=== PATIENT | female | born 1995 | race Hispanic/Latino ===

== ENCOUNTER 2018-07-02 11:13 | Inpatient (IN) | payer OTHER ==
[2018-07-02 12:05] VITALS: BMI 30.2
[2018-07-02] MEDS ORDERED: OXYTOCIN/0.9 % NS 20 UNIT/1,000 ML BAG IV ONE (12:08)
[2018-07-02] MEDS ORDERED: Oxytocin 30 UNIT 30 UNITS/500 ML BAG IV ONE ×2 (12:08→14:26)
[2018-07-02 12:46] LABS: HEMOGLOBIN 12.4 g/dL (12.0-16.0); MEAN CELL VOLUME 87.9 fl (81.0-99.0); MEAN CORPUSCULAR HEMOGLOBIN 28.5 pg (27.0-31.0); MEAN CORPUSCULAR HGB CONC 32.5 g/dL (33.0-37.0); RBC 4.34 Mil/uL (3.80-5.20); RED CELL DISTRIBUTION WIDTH 14.5 % (11.5-14.5); WHITE BLOOD COUNT 12.2 K/uL (4.8-10.8)
[2018-07-02] MEDS: Lactated Ringer's 1,000 ML IV SCH ×2 (13:21→14:30)
[2018-07-02] MEDS: Lactated Ringer's 1,000 ML IV ONE ×2 (13:30→18:00)
[2018-07-02] MEDS ORDERED: Penicillin G 5 Million Unit Vial IVPB ONE (14:43)
[2018-07-02] MEDS ORDERED: Fentanyl/Bupivacaine HCl 250 ML EPI ONE (18:30)
[2018-07-02] MEDS ORDERED: Lidocaine 1% Inj (20ml) ONE (21:06)
[2018-07-02 22:02] LABS: BARBITURATES, UR NEGATIVE (NEGATIVE); BENZODIAZEPINES, UR NEGATIVE (NEGATIVE); OPIATES, UR NEGATIVE (NEGATIVE); PHENCYCLIDINE, UR NEGATIVE (NEGATIVE)
--- NOTE | 2018-07-03 01:01 | OBADHP ---
Datetime: 07/03/2018 00:54 Admit Comment, IP Provider: @ 39. 6 wks gGA c/o vagial bleeidn and ctx pain every 5-10 min sinc e last night increaisng intenisty and frequency since this morning. pt cuong any lof, +FM. 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, no lesions PMH: denies PSH: denies FHX: non contribory MEDS: pnv, valtrex a/p @ 39.6 wks GA in labor admit to L+D npo, vif admsison labs epidrula prn cont otoc adn efm gbs postive Pelvic Type - PN: Adequate Extremities - PN: Normal Abdomen - PN: Normal Back - PN: Normal Breast - PN: Normal Lungs - PN: Normal Heart - PN: Normal Thyroid - PN: Normal Neurologic - PN: Normal HEENT - PN: Normal General - PN: Normal Presentation-Admit: Vertex FHR - Baseline A Provider: 150 Membranes, Provider: Intact Gestation - Est Wks by US: 39.6 IP Hx Assessment: The History has been Reviewed and is Current Vital Signs Provider: Reviewed; Within Normal Limits IP Chief Complaint: Uterine contractions NICHD Variability Prov Fetus A: Moderate 6-25bpm FHR Category Provider Fetus A: Category I NICHD Decel Fetus A IP Provider: None Dilatation, Provider: 4 Effacement, Provider: 70 Station, Provider: -2 Genitourinary Exam: Normal DTRs - PN: Normal EGA AdmitDate IP: 40.0 IP Adm Impression: Term, intrauterine IP Admit Plan: Admit to unit
--- NOTE | 2018-07-03 03:55 | OBDS ---
MATERNAL INFORMATION Provider Comments: pt was fully dilated and pushing, atraumtic, spontanous delivery of head. aturami c spontanous deliver of anterior followed by posterior shoulder follweod by delivery of body. both or al and nasal pasages of baby were bulb suctioned. umbilical cord was clamped and cut. baby handed to mom on abodmen with rn assistnace. cord blood and cord gases colellected and sent x 2. spontaenous de livery of intact palcenta with membarnes. lower uterine segmen boggy, methergine IM given x1. fundus firm. no complications. first degree laceration noted and repaired with 2-0 chromic. good hemostasis . no complication live male inat weight of 3500 grams agpars 9,9 ebls 400ml no complicaiotns LABOR SUMMARY EDC: 07/03/2018 00:00 No. Babies in Womb: 1 LABOR INFORMATION Reason for Induction: Not Applicable Onset of Labor: 07/03/2018 01:00 Complete Dilatation: 07/03/2018 02:30 Group B Beta Strep: done 06/11/18 MEMBRANES Membranes Rupture Method: Artificial Rupture of Membranes: 07/02/2018 20:15 Amniotic Fluid Color: Light Meconium Amniotic Fluid Amount: Large Amniotic Fluid Odor: None STAGES OF LABOR Stage 1 hrs: 1 Stage 1 min: 30 IDENTIFICATION/MEDS BABY A ID Band Number: [id number]
[2018-07-03] MEDS ORDERED: Benzocaine/Menthol SPRAY TOP PRN (03:56)
[2018-07-03] MEDS ORDERED: Oxycodone/Acetaminophen 5/325 mg Tab PO PRN ×4 (03:56→07:07)
[2018-07-03 07:19] LABS: BASO % 0.2 % (0.0-2.0); EOS % 0.1 % (0.0-4.0); HEMOGLOBIN 11.6 g/dL (12.0-16.0); LYMPH # 0.8 K/uL (1.0-4.3); LYMPH % 4.4 % (20.0-40.0); MEAN CELL VOLUME 86.6 fl (81.0-99.0); MEAN CORPUSCULAR HEMOGLOBIN 28.4 pg (27.0-31.0); MEAN CORPUSCULAR HGB CONC 32.8 g/dL (33.0-37.0); MONO # 0.7 K/uL (0.0-0.8); MONO % 3.8 % (0.0-10.0); NEUT # 16.4 K/uL (1.8-7.0); NEUT % 91.5 % (50.0-75.0); PLATELET COUNT 220 K/uL (130-400); RBC 4.09 Mil/uL (3.80-5.20); RED CELL DISTRIBUTION WIDTH 14.7 % (11.5-14.5); WHITE BLOOD COUNT 17.9 K/uL (4.8-10.8)
[2018-07-03 10:24] LABS: BANDS 10 % (0-2); HYPOCHROMIC SLIGHT; LYMPHOCYTE 5 % (20-50); MONOCYTE 5 % (0-10); NEUTROPHIL 80 % (42-75); PLATELET ESTIMATE NORMAL (NORMAL); TOTAL CELLS COUNTED 100
[2018-07-03 10:28] LABS: ANISOCYTOSIS SLIGHT; GIANT PLATELETS PRESENT
--- NOTE | 2018-07-03 13:02 | OBPPN ---
Datetime: 07/03/2018 13:00 PP Pain Prov: Within normal limits PP Nausea Prov: Denies PP Flatus Prov: Yes PP BM Prov: No PP Breasts Prov: Normal PP Heart Prov: Normal PP Lungs Prov: Normal PP Abdomen/Uterus Prov: Normal PP Lochia Prov: Normal PP Vulva/Perineum Prov: Normal PP CVA Tenderness Prov: Normal PP Extremities Prov: Normal PP C/S Incision Prov: Not Applicable PP Progress Prov: Normal PP Impression Prov: Normal progression PP Plan Prov: Continue present management PP Progress Note Prov: pt seen and examiend rpeots pain contoleld with motrin. tp ambauitnana p assing flatus toelrateign regular diet. pt dnies any fever, chisl, n/v, cp, sob, lightheadd, dizzynes s, headaceh, blurry vsion VS see aobve PE ee above a/p s/p PPD #0 am labs pain managment encourge breast feedign adn ambauitong IP PP Procedures: None Vital Signs Provider PP: Reviewed
[2018-07-03] MEDS: Benzocaine/Menthol SPRAY TOP PRN (22:04)
[2018-07-04] MEDS ORDERED: Lidocaine 2% PF (10 ml) Amp ONE (01:02)
[2018-07-04] MEDS ORDERED: Morphine 1 mg/ml preservative-free Inj(Duramorph) ONE (01:03)
--- NOTE | 2018-07-04 01:56 | OBDCSUM ---
Datetime: 07/04/2018 01:54 Discharged to, Provider: Home Follow up at, Provider: Dr Stanley Disch Instr Activity: Normal activity Disch Instr Diet: Regular Discharge Instructions, Provider: Routine instructions given Discharge Diagnosis, Provider: Term Delivered Discharge Time: 07/04/2018 15:00 Follow up in weeks, Provider: 6 weeks Disch Referrals: None Contraception discussed, Prov: Yes Disch Activity Restrictions: No sexual activity; Nothing in vagina - [place], tampons, douche Discharge Comment, Provider: dc in am precauting tesfaye Contraception after Delivery: Not Planning to Use
--- NOTE | 2018-07-04 01:56 | OBPPN ---
Datetime: 07/04/2018 01:54 PP Pain Prov: Within normal limits PP Nausea Prov: Denies PP Flatus Prov: Yes PP Breasts Prov: Normal PP Heart Prov: Normal PP Lungs Prov: Normal PP Abdomen/Uterus Prov: Normal PP Lochia Prov: Normal PP Vulva/Perineum Prov: Normal PP CVA Tenderness Prov: Normal PP Extremities Prov: Normal PP C/S Incision Prov: Not Applicable PP Progress Prov: Normal PP Impression Prov: Normal progression PP Progress Note Prov: pt seen and examiend rpeots pain contoleld with motrin. tp ambauitn, viodng p assing flatus toelrateign regular diet. pt dnies any fever, chisl, n/v, cp, sob, lightheadd, dizzynes s, headaceh, blurry vsion VS see aobve PE ee above a/p s/p PPD #1 am cbc pain managment encourge breast feedign adn ambauitong
[2018-07-04 06:30] LABS: BASO % 0.2 % (0.0-2.0); EOS # 0.1 K/uL (0.0-0.7); HEMOGLOBIN 9.4 g/dL (12.0-16.0); LYMPH # 1.9 K/uL (1.0-4.3); LYMPH % 15.2 % (20.0-40.0); MEAN CELL VOLUME 87.2 fl (81.0-99.0); MEAN CORPUSCULAR HEMOGLOBIN 28.8 pg (27.0-31.0); MONO # 1.1 K/uL (0.0-0.8); MONO % 8.7 % (0.0-10.0); NEUT # 9.3 K/uL (1.8-7.0); NEUT % 74.9 % (50.0-75.0); RBC 3.27 Mil/uL (3.80-5.20); RED CELL DISTRIBUTION WIDTH 14.8 % (11.5-14.5); WHITE BLOOD COUNT 12.4 K/uL (4.8-10.8)
--- NOTE | 2018-07-04 16:19 | OBDCSUM ---
Datetime: 07/04/2018 16:17 Discharged to, Provider: Home Follow up at, Provider: Dr Stanley Disch Instr Activity: Normal activity Disch Instr Diet: Regular Discharge Instructions, Provider: Routine instructions given Discharge Diagnosis, Provider: Term Delivered Discharge Time: 07/05/2018 11:00 Follow up in weeks, Provider: 6 weeks Disch Referrals: None Contraception discussed, Prov: Yes Disch Activity Restrictions: No sexual activity; Nothing in vagina - [place], tampons, douche Discharge Comment, Provider: dc in am Contraception after Delivery: Not Planning to Use Datetime: 07/04/2018 01:54 Discharge Time: 07/05/2018 15:00 Discharge Comment, Provider: dc 07/05
[2018-07-05] MEDS: Benzocaine/Menthol SPRAY TOP PRN (13:07)
[2018-07-05 18:07] VITALS: BP 121/80; PULSE 74; RESP 20; TEMP 98.6; O2SAT 99
== END 2018-07-05 13:51 | disposition home or self-care (01) | DRG 806 ==
LOC: H.EROB2 11:13 → H.L&D 11:57 → H.EROB2 12:05 → H.L&D 12:06 → H.OB/GYN 07-03 06:40
PROVIDERS: ADMIT Obstetrics & Gynecology; ATTEND Obstetrics & Gynecology
PROC: 10E0XZZ Delivery of Products of Conception, External Approach (ICD-10-PCS; principal; 2018-07-02)
PROC: 0HQ9XZZ Repair Perineum Skin, External Approach (ICD-10-PCS; 2018-07-02)
PROC: 4A1HXCZ Monitoring of Products of Conception, Cardiac Rate, External Approach (ICD-10-PCS; 2018-07-02)
DX: O70.0 First degree perineal laceration during delivery (principal); O98.52 Other viral diseases complicating childbirth; Z37.0 Single live birth; B00.89 Other herpesviral infection; Z3A.39 39 weeks gestation of pregnancy; Z79.899 Other long term (current) drug therapy